=== PATIENT | female | born 1945 | race Caucasian/White ===

== ENCOUNTER 2018-05-22 05:58 | Inpatient (IN) | payer MEDICARE, OTHER ==
[~2018-05-22 05:58] MED LIST: Buffered Lidocaine 0.9% SYRIN* 5 ML/SYR SYRINGE INTRADERM ONE; DiMENhydriNATE IV* 50 MG/ML VIAL IV PUSH PRN; Morphine INJ* 2 MG/ML 1 ML SYRINGE (TWO MG - NEW SYRINGE VERSION) IV PRN; Naloxone* 0.4 MG/ML 1 ML VIAL IV PRN; Ondansetron TAB* 4 MG PO ONE; PROCHLORPERAZINE INJ 5 MG/ML 2 ML VIAL IV PRN; Scopolamine 1.5 mg* PATCH TRANSDERM PRN; fentaNYL* 50 MCG/ML 2 ML VIAL (100 MCG VIAL) IV PRN; oxyCODONE/Acetamin 5/325 MG* TAB PO PRN
[2018-05-22] MEDS ORDERED: Famotidine IV* 10 MG/ML 2 ML (20 mg) IV ONE (06:00)
[2018-05-22] MEDS ORDERED: Dexamethasone IV* 4 MG/ML 1 ML (4 MG) IV SLOW PU ONE (06:00)
[2018-05-22] MEDS ORDERED: Ondansetron ODT TAB* 4 MG ONE (06:27)
[2018-05-22] MEDS ORDERED: Famotidine IV* 10 MG/ML 2 ML (20 mg) ONE (06:27)
[2018-05-22] MEDS ORDERED: Dexamethasone IV* 4 MG/ML 1 ML (4 MG) ONE (06:27)
[2018-05-22] MEDS ORDERED: ceFAZolin 2 GM PREMIX (*) 2 GM/50 ML BAG IVPB ONE (06:27)
[2018-05-22] MEDS ORDERED: Midazolam* 1 MG/ML 5 ML VIAL (5 MG) ONE (06:50)
[2018-05-22] MEDS ORDERED: KETAMINE HCL* 50 MG/ML 10 ML VIAL ONE (06:50)
[2018-05-22] MEDS ORDERED: fentaNYL* 50 MCG/ML 2 ML VIAL (100 MCG VIAL) ONE ×2 (06:50→10:09)
[2018-05-22] MEDS ORDERED: Atracurium* 10 MG/ML 10 ML VIAL ONE (06:50)
[2018-05-22] MEDS ORDERED: ROPIVACAINE 5 MG/ML 30 ML BTL (0.5%) ONE (09:22)
[2018-05-22] MEDS ORDERED: Phenylephrine INJ* 10 MG/ML 1 ML VIAL (10 MG) ONE (09:41)
[2018-05-22] MEDS ORDERED: PROCHLORPERAZINE INJ 5 MG/ML 2 ML VIAL ONE (09:41)
[2018-05-22] MEDS ORDERED: Phenylephrine IV* 40 MCG/ML 10 ML SYRINGE ONE (09:41)
[2018-05-22] MEDS ORDERED: Lidocaine 2% PF * 5 ML VIAL ONE (09:41)
[2018-05-22] MEDS ORDERED: Propofol* 10 MG/ML 20 ML BTL IV PUSH ONE (09:41)
[2018-05-22] MEDS ORDERED: EPHEDrine (Pressors)* 50 MG/ML VIAL ONE (09:41)
[2018-05-22] MEDS ORDERED: ceFAZolin 1 GM VIAL(*) ONE (09:41)
[2018-05-22] MEDS ORDERED: Ondansetron TAB* 4 MG PO PRN (10:31)
[2018-05-22] MEDS ORDERED: Ondansetron INJ* 2 MG/ML VIAL IV PRN (10:31)
[2018-05-22] MEDS ORDERED: Temazepam CAP* 15 MG PO PRN (10:31)
[2018-05-22] MEDS ORDERED: Magnesium Hydroxide LIQ* 30 ML UDC PO PRN (10:31)
[2018-05-22] MEDS ORDERED: diPHENhydraMINE IV* 50 MG/ML 1 ml VIAL (BENADRYL) IV PRN (10:31)
[2018-05-22] MEDS ORDERED: oxyCODONE/Acetamin 5/325 MG* TAB PO PRN ×2 (10:31)
[2018-05-22] MEDS ORDERED: Bisacodyl SUPP* 10 MG SUPP PR PRN (10:31)
[2018-05-22] MEDS ORDERED: Polyethylene Glycol 3350* 17 GM PACKET PO PRN (10:31)
[2018-05-22] MEDS ORDERED: traMADol TAB* 50 MG PO PRN (10:31)
[2018-05-22] MEDS ORDERED: Cyclobenzaprine TAB* 10 MG PO PRN (10:31)
[2018-05-22] MEDS ORDERED: diPHENhydraMINE PO* 25 MG PO PRN (10:31)
[2018-05-22] MEDS ORDERED: Zolpidem TAB* 10 MG PO PRN (10:38)
--- NOTE | 2018-05-22 11:25 | RAD ---
Indication: Left shoulder replacement. 3 views of left shoulder demonstrates bipolar left shoulder replacement in satisfactory position. No loosening is noted. IMPRESSION: Left shoulder replacement in satisfactory position.
[2018-05-22] MEDS: oxyCODONE TAB* 5 MG TAB PO PRN ×2 (13:46→20:26)
[2018-05-22] MEDS: Acetaminophen TAB* 325 MG PO SCH (15:50)
[2018-05-22] MEDS: ceFAZolin 1 GM in Dextrose (*) 1 GM/50 ML BAG IVPB SCH (16:03)
[2018-05-22] MEDS: Docusate CAP* 100 MG PO SCH (20:27)
--- NOTE | 2018-05-22 20:45 | OP ---
CC: PCP, Anna Pineda MD * DATE OF OPERATION: 05/22/18 - ROOM #338 DATE OF : 49 SURGEON: Juanita Waldrop MD ASSISTANTS: 1. SHIVA Carney 2. Nahomy Costello. ANESTHESIOLOGIST: Shemar Conner MD ANESTHESIA: General, interscalene block. PRE-OP DIAGNOSES: Left shoulder osteoarthritis with pseudoparalysis and rotator cuff arthropathy. POST-OP DIAGNOSES: Left shoulder osteoarthritis with pseudoparalysis and rotator cuff arthropathy. OPERATIVE PROCEDURE: 1. Left shoulder reverse shoulder arthroplasty. 2. Biceps tenodesis. INDICATIONS: Danay Covarrubias is a 72-year-old female with osteoarthritis of her left shoulder. She has had persistent pain of her shoulder for some time. She has failed conservative management including physical therapy, antiinflammatories, ice, and heat. She has failed an injection. She had an MRI demonstrating high-grade partial-thickness tearing of the rotator cuff with significant synovitis and loose bodies and advanced glenohumeral changes. She, on exam, had pseudoparalysis. The risks and benefits of surgery were discussed at length including, but were not limited to, bleeding; infection; damage to nerves, vessels, surrounding structures; wound nonhealing; persistent pain; need for surgery; scarring; stiffness; incomplete relief of symptoms; risk of anesthesia; risk of DVT. She underwent preoperative medical risk optimization and has agreed to proceed with surgery. COMPLICATIONS: None. ESTIMATED BLOOD LOSS: 200. IMPLANTS USED: Tornier Aequalis Reversed II, threaded baseplate 25 x 35 with reverse tray with 0 thickness and +6 poly. Flex shoulder system, Aequalis Ascend Flex 3B stem. OUTPUT: One drain. SPECIMENS: Humeral head specimen. DESCRIPTION OF PROCEDURE: The patient was greeted in the preoperative area by the attending surgeon. Correct extremity was marked, consent was confirmed. The patient underwent interscalene nerve block by the anesthesiologist after which she was brought back to the operating suite, she was placed in supine position on the operating table. She underwent general anesthesia with endotracheal intubation. She was then appropriately positioned in a lazy beach chair position with a support under her scapula. Once she was secured with all bony prominences padded, the left shoulder was prepped and draped in the usual sterile fashion beginning with chlorhexidine soap, scrub, and alcohol wipe, and a final prep with ChloraPrep. Preoperative range of motion was forward flexed to about 140, abduction to about 90, external rotation to about 50 degrees. After appropriate surgical pause indicating site, side, procedure, and administration of antibiotics, a deltopectoral incision was then made. Soft tissues were carefully dissected to expose the deltopectoral groove with the cephalic vein and the deltoid was taken laterally. Soft tissues were carefully dissected to expose the short head of the biceps, the coracoid, clavipectoral fascia was incised. The CA ligament was released. The abundant bursa that was present was released. There was a large effusion that was removed. There were multiple loose bodies and rice bodies that were present that were removed from the subdeltoid space. There was significant synovitis that was present as well. The pec tendon was identified. The proximal 1 cm was released. The biceps was then tenodesed using a nonabsorbable suture. The biceps was taken more proximally to expose the subscap. The subscap was then released in a subscap peel fashion and the shoulder gently externally rotated. There were grade 3 changes to the humeral head. A portion of the anterior aspect of the supraspinatus was torn. The subscap was then tagged for later repair. The head was then carefully exposed. Hemostasis was obtained at all times. The capsule was fully released and the head externally rotated and was delivered through the wound. Once this was done, the neck cut was then made using a sagittal saw. The canal finder was then used to find the canal. The bone quality was okay. The sizing guide was then used, size 3-4 was chosen to be the appropriate size. Reaming then began beginning with the starting reamer up to a size 2 which had good purchase but ultimately size 3 was going to be the appropriate fit. The protection plate was then placed and attention was directed to the glenoid. The glenoid was exposed, the superior, inferior, middle glenohumeral ligaments were then released with careful attention on the ligaments with care not to damage the subscap. The biceps, superior labrum, anterior and posterior labrum were synovitic and inflamed, this was then removed carefully with electrocautery device. There were grade 3 changes and areas of grade 4 changes of the glenoid. Once the glenoid was fully exposed, posterior and superior retractors were placed appropriately, the size 25-mm guide was then placed and a guide pin was placed more inferiorly in the glenoid. Once these were appropriately positioned, the size 25-mm baseplate reamer was then reamed. The bone quality was slightly poor on the glenoid than the humerus. After this was done, the footprint reamer was hand reamed to allow for placement of the glenosphere. After this was done, the excess debris was removed and size 8-mm cannulated drill bit was drilled and then the size 6.5 mm drill bit was drilled to full length to allow for bicortical purchase. This was measured to be about 35 mm. A size 35 x 25 mm baseplate was then chosen and then screwed into position with excellent purchase. Three interlocking screws were then placed superior, inferior, as well as anteriorly with excellent purchase. The wound was irrigated again. The glenosphere was then impacted into position and secured with a set screw. The humerus was then brought back through the wound. The fit of the size 2 stem was checked and it had some give, therefore a size 3 was then placed with excellent purchase. The trial implants were then placed with the centered baseplate as well as the +6 liner. The shoulder was then reduced and taken through a range of motion. She was able to be forward flexed to about 130. Therefore, some soft tissue releases and the remainder of the bursectomy was completed with removal of the adhesions as well as confirming release of the CA ligament. Once this was done, forward flexion was found to be about 145, abduction to about 90, external rotation to about 40 degrees. This was found to be acceptable. At this point, the final implants were chosen. The transosseous tunnels were then placed to allow for later subscap closure with #5 Ethibond sutures. The final implants were prepared on the back table by the same surgeon. These were then impacted into position with excellent purchase. The shoulder was then reduced, taken through range of motion, found to have again the same range of motion. The wounds were then copiously irrigated with sterile saline. The subscap was closed in horizontal mattress configuration from the preplaced sutures. The wounds were copiously irrigated again, and the deltopectoral layer was closed with #2 Ethibond suture , the skin in layers with 2-0 Vicryl and 3-0 Monocryl. Sterile dressings were applied. A Cryo/Cuff was applied as well as an UltraSling with no pillow. She was awoken from anesthesia and transported to PACU in stable condition. POSTOPERATIVE PLAN: She will be nonweightbearing. She will be in the sling. She will get x-rays in the PACU. The sling will be discontinued on postop day # 1. She will receive 24 hours of perioperative antibiotics. DVT prophylaxis is considered, but deferred. She will be on heparin while she is in the hospital and discharged without DVT prophylaxis. I will see the patient back in 10 to 14 days. We will continue monitoring in the hospital until she is stable for discharge. [id number]/[facility] #: [id number] THA
--- NOTE | 2018-05-22 20:48 | PN ---
Progress Note - Progress Note Date of Service: 05/22/18 Note: Pt seen and examined at 5 pm. Doing ok. No SOB or chest pain. Block still working. at bedside. Temp Pulse Resp BP Pulse Ox 98.3 F 69 16 105/56 95 05/22/18 20:09 05/22/18 20:09 05/22/18 20:28 05/22/18 20:09 05/22/18 20:09 NAD. LUE dressing and sling in place. Drain in place. Able to flex/ext digits. brisk cap refill. Xrays reviewed and show acceptable alignment. A/P POD#0 from L shoulder reverse Drain d/c'd tomorrow labs in AM. 24 hours of post op abx. PT/OT. NWB- passive ROM FF to 90, abd to 90, ER to 40 as tolerated. May come out of sling 4 times a day for elbow, hand and wrist ROM. potential d/c home tomorrow.
[2018-05-22] MEDS: Morphine INJ* 2 MG/ML 1 ML SYRINGE (TWO MG - NEW SYRINGE VERSION) IV PRN (22:09)
[2018-05-22] MEDS: Pregabalin CAP(*) 25 MG PO PRN (22:09)
[2018-05-23] MEDS: ceFAZolin 1 GM in Dextrose (*) 1 GM/50 ML BAG IVPB SCH ×2 (00:21→08:19)
[2018-05-23] MEDS: oxyCODONE TAB* 5 MG TAB PO PRN (00:23)
[2018-05-23] MEDS: Acetaminophen TAB* 325 MG PO SCH ×2 (00:24→08:19)
[2018-05-23] MEDS: Morphine INJ* 2 MG/ML 1 ML SYRINGE (TWO MG - NEW SYRINGE VERSION) IV PRN (02:20)
[2018-05-23] MEDS: HYDROcodone/ACETAMIN 5-325 MG* 1 TAB PO PRN ×3 (04:53→12:37)
[2018-05-23 06:02] LABS: Hematocrit 28 % (35-47); Mean Platelet Volume 6.1 um3 (7.4-10.4); Platelet Count 245 10^3/ul (150-450)
[2018-05-23 06:28] LABS: EGFR Non-African American 93.4 (>60)
[2018-05-23] MEDS: Docusate CAP* 100 MG PO SCH (08:19)
[2018-05-23] MEDS: Pregabalin CAP(*) 25 MG PO PRN (08:39)
[2018-05-23] MEDS ORDERED: Montelukast Sodium TAB* 10 MG PO SCH (09:00)
[2018-05-23] MEDS ORDERED: BuPROPion XL* 300 MG TAB.XL PO SCH (09:00)
[2018-05-23] MEDS ORDERED: Omeprazole CAP* 20 MG PO SCH (09:00)
[2018-05-23] MEDS ORDERED: ABALOPARATIDE SUBCUT SCH (09:00)
[2018-05-23] MEDS ORDERED: CMCS: Escitalopram (NF) 10 MG TAB PO SCH (09:00)
[2018-05-23 09:13] VITALS: BP 146/58
--- NOTE | 2018-05-23 09:27 | PN ---
Progress Note - Progress Note Date of Service: 05/23/18 SOAP: Subjective: [] Patient seen and examined at bedside. She feels well and denies CP, SOB, dizziness, nausea. Overnight she required IV pain medication but states that her pain is well controlled at this time and desires DC home later today. Objective: [] General: Well appearing, NAD. LUE dressing and sling in place. Drain removed with tip intact, procedure tolerated well by patient. Able to flex/ext digits, wrist and elbow. Sensation intact to light touch throughout left hand. brisk cap refill and radial pulse 2+ . Assessment: [] S/P L shoulder reverse POD 1 Plan: []Drain d/c'd PT/OT. NWB- passive ROM FF to 90, abd to 90, ER to 40 as tolerated. May come out of sling 4 times a day for elbow, hand and wrist ROM. Plan for DC home when post op abx done as long as patient feels well after PT Vital Signs Temp 98.2 F 05/23/18 09:11 Pulse 78 05/23/18 09:11 Resp 16 05/23/18 09:11 BP 146/58 05/23/18 09:11 Pulse Ox 97 05/23/18 05:29 Intake & Output 05/22/18 05/23/18 05/23/18 18:59 06:59 18:59 Intake Total 2721 2085 1649 Output Total 1400 2150 Balance 1321 -65 1649 Intake: IV Fluids 1900 105 ABX - CEFAZOLIN 105 LR 1900 IVPB 401 1649 ABX - CEFAZOLIN 65 LR 401 1584 Oral 420 1980 Output: Hemovac Amount #1 250 Urine 1400 1900 Laboratory Last Values Hgb 10.0 g/dl (12.0-16.0) L 05/23/18 05:39 Hct 28 % (35-47) L 05/23/18 05:39 Plt Count 245 10^3/ul (150-450) 05/23/18 05:39 MPV 6.1 um3 (7.4-10.4) L 05/23/18 05:39 Sodium 136 mmol/L (135-145) 05/23/18 05:39 Potassium 3.8 mmol/L (3.5-5.0) 05/23/18 05:39 Chloride 103 mmol/L (101-111) 05/23/18 05:39 Carbon Dioxide 28 mmol/L (22-32) 05/23/18 05:39 Anion Gap 5 mmol/L (2-11) 05/23/18 05:39 BUN 11 mg/dL (6-24) 05/23/18 05:39 Creatinine 0.63 mg/dL (0.51-0.95) 05/23/18 05:39 Est GFR ( Amer) 113.0 (>60) 05/23/18 05:39 Est GFR (Non-Af Amer) 93.4 (>60) 05/23/18 05:39 BUN/Creatinine Ratio 17.5 (8-20) 05/23/18 05:39 Glucose 145 mg/dL (70-100) H 05/23/18 05:39 Calcium 8.8 mg/dL (8.6-10.3) 05/23/18 05:39
[2018-05-23] MEDS ORDERED: Enoxaparin(*) 40 MG/0.4 ML SYR SUBCUT SCH (12:00)
[2018-05-23] MEDS ORDERED: HYDROcodone/ACETAMIN 5-325 MG* 1 TAB PO ONE (12:40)
--- NOTE | 2018-05-24 03:39 | DS ---
DISCHARGE SUMMARY: DATE OF ADMISSION: 05/22/18 DATE OF DISCHARGE: 05/23/18 ATTENDING PROVIDER: Dr. Waldrop * (DICTATED BY SHIVA PENN) PREOPERATIVE DIAGNOSES: Left shoulder osteoarthritis with pseudoparalysis and rotator cuff arthropathy. OPERATIVE PROCEDURE: Left shoulder reverse shoulder arthroplasty and biceps tenodesis. INDICATIONS: Danay Covarrubias is a 72-year-old female with a history of osteoarthritis of her left shoulder. She has had persistent pain of her shoulder for some time. She has failed conservative management and elected to undergo a left reverse shoulder arthroplasty and biceps tenodesis. HOSPITAL COURSE: The patient was admitted to [facility] on . She underwent left shoulder reverse arthroplasty and biceps tenodesis. She recovered briefly in the PACU and then was transferred to the short-stay surgical unit. Postop day 1, she was well appearing, in no acute distress. Dressing was clean, dry, and intact. Drain was removed with tip intact. Procedure was tolerated well by the patient. Able to flex and extend her digits , wrist, elbow. DISCHARGE MEDICATIONS: New medications at home include: 1. Acetaminophen 975 p.o. q.8 hours p.r.n., max daily dose of 4000 units. 2. Hydrocodone/acetaminophen 5/325 one to two tabs every 4 to 6 hours as needed for pain, max daily dose of 8. 3. Docusate 100 mg p.o. b.i.d. p.r.n. DISCHARGE PLAN: Nonweightbearing in the left upper extremity. No active range of motion. Continue elbow, wrist, and hand pendulum ____ physical therapy, passive range of motion, forward flexion to 90, abduction to 90, external rotation to 40 as tolerated. 4 times a day for elbow, wrist, and hand range of motion. Pain control with hydrocodone and acetaminophen 5/325 one to two tabs every 4 to 6 hours as needed for pain, max dose of 8 tabs per day. Follow up with Dr. Waldrop in 10 to 12 days. SHIVA PENN [id number]/[facility] [place] #: [id number] [facility]
[2018-05-25] MEDS ORDERED: Scopolamine PATCH Remove* 1 NOTE MISC PATCH OFF ONE (05:35)
== END 2018-05-23 13:35 | disposition home health service (06) | DRG 483 ==
LOC: OR 05:58 → SSU 10:31
PROVIDERS: ADMIT Orthopaedic Surgery; ATTEND Orthopaedic Surgery
PROC: 0LS40ZZ Reposition Left Upper Arm Tendon, Open Approach (ICD-10-PCS; 2018-05-22)
PROC: 0RRK00Z Replacement of Left Shoulder Joint with Reverse Ball and Socket Synthetic Substitute, Open Approach (ICD-10-PCS; principal; 2018-05-22 07:30)
DX: M19.012 Primary osteoarthritis, left shoulder (principal); R29.818 Other symptoms and signs involving the nervous system; M12.812 Other specific arthropathies, not elsewhere classified, left shoulder; K21.9 Gastro-esophageal reflux disease without esophagitis; F32.9 Major depressive disorder, single episode, unspecified; F41.9 Anxiety disorder, unspecified; M79.7 Fibromyalgia; Z96.653 Presence of artificial knee joint, bilateral; K59.00 Constipation, unspecified; G89.29 Other chronic pain; M54.9 Dorsalgia, unspecified; J30.2 Other seasonal allergic rhinitis; M81.0 Age-related osteoporosis without current pathological fracture; M47.817 Spondylosis without myelopathy or radiculopathy, lumbosacral region; M43.16 Spondylolisthesis, lumbar region; Z87.891 Personal history of nicotine dependence; Z98.51 Tubal ligation status; Z82.49 Family history of ischemic heart disease and other diseases of the circulatory system; Z82.3 Family history of stroke; Z80.0 Family history of malignant neoplasm of digestive organs; Z88.6 Allergy status to analgesic agent
CPT/HCPCS: 36415; 80048; 85014; 85018; 85049; A9270-GY; G8978-GP-CH; G8979-GP-CH; G8980-GP-CH; G8987-GO-CJ; G8988-GO-CJ; G8989-GO-CJ; J0690; J0780; J1100; J1650; J2250; J2270; J2704; J2795; J3010